=== PATIENT | male | born 1970 | race African-American/Black ===

== ENCOUNTER 2017-11-18 05:11 | Emergency (ER) | payer BC ==
[2017-11-18] MEDS ORDERED: Lidocaine 1% w/Epinephrine 1:100K 20 ML VIAL ONE (05:20)
[2017-11-18] MEDS ORDERED: Ketorolac Tromethamine 60 MG/2 ML VIAL ONE (05:39)
== END 2017-11-18 06:00 | disposition home or self-care (01) ==
LOC: ERS 05:11
DX: L02.11 Cutaneous abscess of neck (principal)
CPT/HCPCS: 10060; 96372; J1885; J2001

== ENCOUNTER 2021-04-19 22:44 | Emergency (ER) | payer BC ==
[2021-04-20] MEDS ORDERED: Lidocaine 1% (PF) 30 ML VIAL ONE (00:31)
[2021-04-20] MEDS ORDERED: Boostrix 0.5 ML (Tdap) VIAL ONE ×2 (00:31→00:36)
[2021-04-20] MEDS ORDERED: HYDROcodone/Acetaminophen 10/325 mg Tablet ONE (01:36)
== END 2021-04-20 01:46 | disposition home or self-care (01) ==
LOC: ERS 22:44
DX: L02.811 Cutaneous abscess of head [any part, except face] (principal)
CPT/HCPCS: 10060; 90471; 90715; J2001

== ENCOUNTER 2024-06-19 11:25 | Emergency (ER) | payer BC, SELFPAY | END 2024-06-19 12:48 | disposition home or self-care (01) | LOC: ERS 11:25 | DX: S86.911A Strain of unspecified muscle(s) and tendon(s) at lower leg level, right leg, initial encounter (principal); S40.011A Contusion of right shoulder, initial encounter; V89.2XXA Person injured in unspecified motor-vehicle accident, traffic, initial encounter | CPT/HCPCS: 99284 ==